=== PATIENT | female | born 1990 | race Caucasian/White ===

== ENCOUNTER → 2018-11-25 | Outpatient (CLI) | payer OTHER | END | disposition home or self-care (01) | LOC: LAB SHORT 15:15 → LAB 15:15 | DX: D72.829 Elevated white blood cell count, unspecified (principal); R71.8 Other abnormality of red blood cells; L68.0 Hirsutism; F32.9 Major depressive disorder, single episode, unspecified; R53.83 Other fatigue; R53.81 Other malaise | CPT/HCPCS: 82533; 82607; 82746 ==

== ENCOUNTER → 2018-11-30 | Outpatient (CLI) | payer OTHER | END | disposition home or self-care (01) | LOC: LAB SHORT 12:44 → LAB 12:44 | DX: D72.829 Elevated white blood cell count, unspecified (principal); L68.0 Hirsutism; R71.8 Other abnormality of red blood cells | CPT/HCPCS: 82533 ==

== ENCOUNTER → 2019-04-26 | Outpatient (CLI) | payer OTHER ==
[2019-04-28 13:08] LABS: HPV 16 Positive (Negative); HPV 18 Negative (Negative); HPV OTHER HR TYPES Negative (Negative)
== END | disposition home or self-care (01) ==
LOC: LAB SHORT 18:08 → LAB EV 18:08
PROVIDERS: Family Medicine
DX: Z01.419 Encounter for gynecological examination (general) (routine) without abnormal findings (principal)
CPT/HCPCS: 87624; 88175

== ENCOUNTER → 2019-11-10 | Outpatient (CLI) | payer OTHER | END | disposition home or self-care (01) | LOC: PLD 06:44 → LAB SHORT 06:44 | DX: R87.810 Cervical high risk human papillomavirus (HPV) DNA test positive (principal) | CPT/HCPCS: 88305 ==